=== PATIENT | female | born 1995 | race Two or more races ===

== ENCOUNTER 2024-10-20 19:11 | Emergency (ER) | payer OTHER ==
[~2024-10-20] VITALS: Ht 160 cm; Wt 99.8 kg
[2024-10-20] MEDS ORDERED: RESTORIL30 MG PO (19:56)
[2024-10-20] MEDS ORDERED: TRAZODONE HCL100 MG PO (19:56)
[2024-10-20] MEDS ORDERED: QUETIAPINE FUM150 MG PO (19:56)
[2024-10-20] MEDS ORDERED: LAMOTRIGINE25 M1 PO (19:56)
[2024-10-20] MEDS ORDERED: LORAZEPAM1 MG PO (19:56)
[2024-10-20] MEDS ORDERED: HYDROCODONE/CHLORPHEN P-STIREX 5 ML ML PO STA (20:02)
[2024-10-20 21:29] LABS: HEMATOCRIT 31.5 % (36.0-45.00); HEMOGLOBIN 9.8 g/dL (12.0-15.00); MEAN CELL VOLUME 63.2 fL (80.00-100.00); MEAN CORPUSCULAR HEMOGLOBIN 19.7 pg (27.00-32.0); MEAN CORPUSCULAR HGB CONC 31.2 g/dl (32.0-36.0); PLATELET COUNT 259 K/uL (150-450); RED BLOOD COUNT 4.98 M/uL (4.00-6.00); RED CELL DISTRIBUTION WIDTH 20.7 % (11.5-14.5)
[2024-10-20 22:03] LABS: COVID-19 AG NEGATIVE (NEGATIVE)
[2024-10-20 22:20] LABS: INFLUENZA A AG NEGATIVE (NEGATIVE)
== END 2024-10-20 22:28 | disposition home or self-care (01) ==
LOC: ER 19:12
DX: J06.9 Acute upper respiratory infection, unspecified (principal); Z20.822 Contact with and (suspected) exposure to COVID-19; Z88.0 Allergy status to penicillin; Z88.8 Allergy status to other drugs, medicaments and biological substances